=== PATIENT | female | born 1985 | race Caucasian/White ===

== ENCOUNTER 2017-05-24 10:26 | Emergency (ER) | payer MEDICAID ==
[~2017-05-24] VITALS: Ht 170.2 cm; Wt 51.0 kg
[~2017-05-24 10:26] MED LIST: ABIL5TAB6 PO; ALBUAER3 INH; AMIT1TAB79 PO; AZIT200S2 PO; BIOTSPR PO; BLOOD GLUCOSE T1 TES; BUTA1TAB30 PO; DIAZ5TAB PO; DICL75TA PO; DICY10CA12 PO; DULO1CAP2 PO; FLUC40SU PO; FOLI400T PO; HYDR-3516 PO; HYDR1CAP30 PO; LURA20TA PO; NYST1000 SWISH-SWAL; OMEG100037; PRAV20TA PO; PRIS50TA PO; PROP20TA3 PO; REGL10TA5 PO; ROPI2 PO; SYMATAB PO; SYMB80AE INH; TOPA100T11 PO; TRAM50TA PO; TRAZ50TA12 PO
[2017-05-24 10:28] VITALS: BP 102/58; PULSE 94; RESP 20; TEMP 98.4; O2SAT 100
--- NOTE | 2017-05-24 10:53 | PD ---
HPI Chief Complaint: Dizziness Time Seen by Provider: 10:36 Travel History International Travel<30 days: No Contact w/Intl Traveler<30days: No Traveled to known affect area: No History of Present Illness HPI So 31-year-old woman with a reported history of gastroparesis who presents to the emergency department complaining of increased heart rate lightheadedness and low blood pressure. She states she had a G-tube that was removed due to infection a week ago. She since that time she has not really been eating and drinking very much. She saw her primary doctor yesterday this [facility] where she had reported low blood pressure and high heart rate. She was referred to the emergency department but wasn't able to come yesterday and so came today. She states she's taking antibiotics for the infection around her feeding tube. She is due to follow-up in another 2-1/2 weeks for repeat feeding tube. History Past Medical History Narrative Medical Chronic pain chronic migraines Gastroparesis : 3 Para: 3 Social History Alcohol Use: No Tobacco Use: Yes (1/2 PPD) Allergies-Medications (Allergen,Severity, Reaction): Coded Allergies: Cipro (Verified Allergy, Severe, Itching, 05/24/17) Transderm-Scop (Verified Allergy, Severe, throat swelling, 05/24/17) Bentyl (Verified Allergy, Mild, Itching, 05/24/17) Carafate (Verified Allergy, Unknown, 05/24/17) Reported Meds & Prescriptions Reported Meds & Active Scripts Active Proair Hfa 8.5 GM Inh (Albuterol Sulfate) 90 Mcg/Act Aer 2 Puff INH Q4-6H PRN 108 mcg/actuation Pravachol (Pravastatin) 20 Mg Tab 20 Mg PO HS Biotene Moisturizing Mouth [place] Liq (Artificial Saliva Liq) 1 [place] 3 [place] PO TID Reported Augmentin (Amoxicillin-Clavulanate) 875-125 Mg Tab 1 Tab PO Q12HR 7 Days START DATE:05/23/2017 Fetzima ER (Levomilnacipran ER) 40 Mg Caper 40 Mg PO DAILY Percocet (Oxycodone-Acetaminophen) 7.5-325 mg Tab 1 Tab PO Q6H PRN Fish Oil + Vitamin D-3 Softgel (Omega3/Dha/Epa/Fish Oil/Vit D3) 1 Each Capsule 1 ,000 Mg PO HS Diazepam 5 Mg Tab 5 Mg PO TID PRN Trazodone (Trazodone HCl) 50 Mg Tab 50 Mg PO HS Topamax (Topiramate) 100 Mg Tab 100 Mg PO BID Symbicort Inh (Budesonide/Formoterol Fumarate) 80-4.5 Mcg/Act Aero 2 Puff INH Q12HR Requip (Ropinirole HCl) 2 Mg Tab 2 Mg PO HS Propranolol (Propranolol HCl) 20 Mg Tab 20 Mg PO Q12HR Butalbital-Acetaminophen 50-325 Mg Tab 1 Tab PO Q4HR PRN Do not exceed 6 tablets per day. Reglan (Metoclopramide HCl) 10 Mg Tab 10 Mg PO Q6HR Folic Acid 400 Mcg Tab 400 Mcg PO DAILY Review of Systems Except as stated in HPI: all other systems reviewed are Neg Physical Exam Narrative GENERAL: 31-year-old woman, thin, nontoxic. SKIN: Focused skin assessment warm/dry. NECK: Trachea midline. No JVD. CARDIOVASCULAR: Regular rate and rhythm. No murmur appreciated. RESPIRATORY: No accessory muscle use. Clear to auscultation. Breath sounds equal bilaterally. GASTROINTESTINAL: Admits flat and soft. His multiple scars from previous feeding tubes. There is a small wound on the left upper abdomen from previous feeding tube. There is some crusted drainage there. No blood. Nose runny erythema redness or evidence of infection. Mild diffuse tenderness. MUSCULOSKELETAL: No obvious deformities. No edema. NEUROLOGICAL: Awake and alert. No obvious cranial nerve deficits. Motor grossly within normal limits. Normal speech. PSYCHIATRIC: Appropriate mood and affect; insight and judgment normal. Data Data Last Documented VS Vital Signs Date Time Temp Pulse Resp B/P Pulse Ox O2 Delivery O2 Flow Rate FiO2 05/24/17 11:38 95 16 96/63 100 Room Air 05/24/17 10:28 98.4 Orders Complete Blood Count With Diff (05/24/17 10:47) Basic Metabolic Panel (Bmp) (05/24/17 10:47) Beta Hcg (Quant/Titer) (05/24/17 10:47) Iv Access Insert/Monitor (05/24/17 10:47) Sodium Chlor 0.9% 1000 Ml Inj (Ns 1000 M (05/24/17 11:00) Sodium Chlor 0.9% 1000 Ml Inj (Ns 1000 M (05/24/17 11:00) Ondansetron Inj (Zofran Inj) (05/24/17 11:00) Labs Laboratory Tests Test 05/24/17 11:00 White Blood Count 10.0 TH/MM3 Red Blood Count 3.58 MIL/MM3 Hemoglobin 12.0 GM/DL Hematocrit 35.0 % Mean Corpuscular Volume 97.7 FL Mean Corpuscular Hemoglobin 33.4 PG Mean Corpuscular Hemoglobin 34.2 % Concent Red Cell Distribution Width 13.4 % Platelet Count 212 TH/MM3 Mean Platelet Volume 8.8 FL Neutrophils (%) (Auto) 57.9 % Lymphocytes (%) (Auto) 25.7 % Monocytes (%) (Auto) 9.5 % Eosinophils (%) (Auto) 6.3 % Basophils (%) (Auto) 0.6 % Neutrophils # (Auto) 5.8 TH/MM3 Lymphocytes # (Auto) 2.6 TH/MM3 Monocytes # (Auto) 0.9 TH/MM3 Eosinophils # (Auto) 0.6 TH/MM3 Basophils # (Auto) 0.1 TH/MM3 CBC Comment DIFF FINAL Differential Comment Sodium Level 139 MEQ/L Potassium Level 3.7 MEQ/L Chloride Level 110 MEQ/L Carbon Dioxide Level 23.7 MEQ/L Anion Gap 5 MEQ/L Blood Urea Nitrogen 10 MG/DL Creatinine 0.57 MG/DL Estimat Glomerular Filtration 124 ML/MIN Rate Random Glucose 85 MG/DL Calcium Level 8.8 MG/DL Human Chorionic Gonadotropin, LESS THAN 1 Quant MIU/ML MDM Medical Decision Making Medical Screen Exam Complete: Yes Emergency Medical Condition: Yes Interpretation(s) Labs unremarkable Differential Diagnosis Dehydration, anemia, electrolyte abdomen abnormality, other Narrative Course Medical decision making 31-year-old woman presents to the emergency department apparently dehydrated. She is not toxic. Heart rate and blood pressure here as expected without evidence of significant hypotension or hemodynamic instability. She's not had any vomiting but states she does have nausea. She was not using her feeding tube even before returning for several days because of the downsize. Recommend insurance boost drinks, continue hydration, continue current medications. We' ll check labs and give IV fluids. Diagnosis Primary Impression: Dehydration Additional Instructions: Continue current medications. Continue hydration and calories supplementation as discussed. Follow-up with your primary doctor in the next 2-3 days. Return to the emergency department for any new or worsening symptoms. Med/Other Pt SpecificInfo: No Change to Meds Disposition: 01 DISCHARGE HOME Condition: Tyler Mehta MD May 24, 2017 10:53
[2017-05-24] MEDS ORDERED: SODIUM CHLOR 0.9% 1000 ML INJ 1,000 ML IV ONE ×2 (11:00)
[2017-05-24] MEDS ORDERED: ONDANSETRON HCL 4 MG/2 ML VIAL IV ONE (11:00)
[2017-05-24 11:17] LABS: AUTOMATED NEUTROPHIL # 5.8 TH/MM3 (1.8-7.7); BASOPHIL # 0.1 TH/MM3 (0-0.2); BASOPHIL % 0.6 % (0.0-2.0); EOSINOPHIL # 0.6 TH/MM3 (0-0.4); EOSINOPHIL % 6.3 % (0.0-4.0); HEMO FLAGS DIFF FINAL; LYMPH % 25.7 % (9.0-44.0); LYMPHOCYTE # 2.6 TH/MM3 (1.0-4.8); MEAN CELL VOLUME 97.7 FL (80.0-100.0); MEAN CORPUSCULAR HEMOGLOBIN 33.4 PG (27.0-34.0); MEAN CORPUSCULAR HGB CONC 34.2 % (32.0-36.0); MONO % 9.5 % (0.0-8.0); NEUT % 57.9 % (16.0-70.0); PLATELET COUNT 212 TH/MM3 (150-450); RED BLOOD COUNT 3.58 MIL/MM3 (4.00-5.30); RED CELL DISTRIBUTION WIDTH 13.4 % (11.6-17.2)
[2017-05-24 11:33] LABS: ANION GAP 5 MEQ/L (5-15); BICARBONATE 23.7 MEQ/L (21.0-32.0); BLOOD UREA NITROGEN 10 MG/DL (7-18); CHLORIDE 110 MEQ/L (98-107); GLOMERULAR FILTRATION RATE 124 ML/MIN (>89); POTASSIUM 3.7 MEQ/L (3.5-5.1); SODIUM (NA) 139 MEQ/L (136-145)
[2017-05-24] MEDS ORDERED: OMEG1CAP76 PO (11:33)
[2017-05-24] MEDS ORDERED: PERC7.5T13 PO (11:33)
[2017-05-24] MEDS ORDERED: LEVO1CAP3 PO (11:33)
[2017-05-24 11:36] LABS: BETA HCG QUANT LESS THAN 1 MIU/ML (0-5)
[2017-05-24 11:38] VITALS: BP 96/63; PULSE 95; RESP 16; O2SAT 100
[2017-05-24] MEDS ORDERED: AUGM875T3 PO (11:39)
[2017-05-24 12:07] VITALS: BP 108/65; PULSE 77; RESP 16; O2SAT 100
== END 2017-05-24 12:57 | disposition home or self-care (01) ==
LOC: NEPD 10:26
DX: E86.0 Dehydration (principal); R11.0 Nausea; K31.84 Gastroparesis; F17.210 Nicotine dependence, cigarettes, uncomplicated; Z79.899 Other long term (current) drug therapy
CPT/HCPCS: 80048; 84702; 85025; 96361; 96374; 99284; J2405; J7030